=== PATIENT | male | born 1985 | race African-American/Black ===

== ENCOUNTER 2023-10-06 12:25 | Observation (INO) ==
[2023-10-06 13:13] LABS: Basophils # (auto) 0.03 K/uL (0.00-0.20); Eosinophils # (auto) 0.07 K/uL (0.00-0.50); Eosinophils % (auto) 2.2 %; Hematocrit (blood only) 45.2 % (42.0-52.0); Hemoglobin 15.8 g/dl (14.0-18.0); Immature Granulocytes # (auto) 0.01 K/uL (0.01-0.20); Immature Granulocytes % (auto) 0.3 %; Lymphocytes # (auto) 0.76 K/uL (1.20-3.40); Lymphocytes % (auto) 24.3 %; Mean Corpuscular Volume 85.9 fL (80.0-100.0); Mean Platelet Volume 10.3 fL (9.4-12.4); Monocytes # (auto) 0.24 K/uL (0.11-0.59); Monocytes % (auto) 7.7 %; Neutrophils # (auto) 2.02 K/uL (1.40-6.50); Neutrophils % (auto) 64.5 %; Platelet Count 289 K/uL (130-400); RDW Standard Deviation 37.6 fL (36.4-46.3); Red Blood Count 5.26 M/uL (4.70-6.10); White Blood Count 3.13 K/ul (4.8-10.8)
[2023-10-06 13:17] LABS: iSTAT Ionized Calcium 1.13 mmol/l (1.12-1.32); iSTAT Potassium 3.4 mmol/L (3.3-5.0)
[2023-10-06 13:24] LABS: Albumin Level 4.3 gm/dl (3.4-5.0); Bilirubin,Total 1.3 mg/dl (0.2-1.0); Calcium 9.2 mg/dl (8.6-10.3); Magnesium 1.6 mg/dl (1.7-2.4); Potassium 3.4 mmol/L (3.5-5.1)
[2023-10-06 13:30] LABS: Albumin Globulin Ratio 1.4 (0.9-2); BUN Creatinine Ratio 9.6 (10-20); Creatinine Clr Calc Pharmacy 119.4 ml/min; Est GFR (African American) 105.8 ml/min; Est GFR (Non-African American) 91.3 ml/min; Total Protein 7.3 gm/dl (6.0-8.3)
[2023-10-06 13:35] LABS: Acetaminophen < 3 ug/ml (10-30); Salicylate < 3.0 mg/dl (3.0-30)
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
[2023-10-06 14:01] LABS: Troponin I High Sensitivity 7.4 pg/ml (0-20)
[2023-10-06 14:05] LABS: Appearance Urine Clear (Clear); Bacteria Urine Automated None Seen (None Seen); Bilirubin Urine Negative (Negative); Blood Urine Negative (Negative); Color Urine Dark Yellow; Epithelial Cell Urine Auto 0-2 /hpf (0-2); Glucose Urine UA Negative (Negative); Granular Casts Urine Present /lpf (None Prsent); Hyaline Casts Urine Present /lpf (None Presnt); Ketones Urine 4+ (Negative); Leukocyte Esterase Urine Negative (Negative); Nitrite Urine Negative (Negative); Protein Urine 1+ (Negative); RBC Urine Automated 0-2 /hpf (0-2); Urobilinogen Urine Negative (Negative); WBC Urine Automated 0-5 /hpf (0-5)
[2023-10-06 14:28] LABS: Base Excess VBG -5.1 mEq/L; HCO3 VBG 20 mmol/L; Oxygen Saturation VBG 85.4 %; PCO2 VBG 36 mmHg (38-50); PO2 VBG 55 mmHg; pH VBG 7.35 (7.36-7.41)
[2023-10-06 14:35] LABS: Amphetamines+Metham, Urine Neg (Neg); Barbiturates, Urine Neg (Neg); Benzodiazepine, Urine Neg (Neg); Cocaine, Urine Neg (Neg); Fentanyl, Urine Neg (Neg); MDMA (Ecstacy), Urine Neg (Neg); Marijuana, Urine Neg (Neg); Methadone, Urine Neg (Neg); Opiate, Urine Neg (Neg); Phencyclidine, Urine Neg (Neg)
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
[2023-10-06] MEDS ORDERED: ACETAMINOPHEN 325 MG TAB PO PRN (15:28)
--- NOTE | 2023-10-06 15:31 | Billing Data ---
Date of Service October 06, 2023 Coding Level of Care Code 59856 INT INP/OBS CARE
[2023-10-06 15:54] LABS: Phosphorus 3.1 mg/dl (2.5-4.9)
[2023-10-06 16:56] LABS: BUN Creatinine Ratio 10.2 (10-20); Calcium 9.2 mg/dl (8.6-10.3); Creatinine Clr Calc Pharmacy 126.7 ml/min; Est GFR (African American) 113.7 ml/min; Est GFR (Non-African American) 98.1 ml/min; Magnesium 1.7 mg/dl (1.7-2.4); Phosphorus 3.6 mg/dl (2.5-4.9); Potassium 3.9 mmol/L (3.5-5.1)
[2023-10-06] MEDS: ONDANSETRON INJ 2 MG/ML 2 ML VIAL IV PRN (17:21)
[2023-10-06] MEDS ORDERED: DOCUSATE CALCIUM 240 MG CAPSULE PO PRN (17:24)
[2023-10-06] MEDS: POTASSIUM CHLORIDE CRTAB 20 MEQ TABCR PO STA (17:28)
[2023-10-06] MEDS: LACTATED RINGER'S 1,000 ML IV ONE (17:28)
[2023-10-06] MEDS: DOCUSATE SODIUM 100 MG CAP PO ONE (17:28)
[2023-10-06] MEDS: MAGNESIUM SULFATE / D5W 1 GM/100 ML BAG IV SCH (17:32)
[2023-10-06] MEDS: THIAMINE HCL 100 MG in SYRINGE 9 ML IV STA (18:23)
[2023-10-06] MEDS: FOLIC ACID 1 MG in SYRINGE 9.8 ML IV STA (18:27)
[2023-10-06] MEDS: LACTATED RINGER'S 1,000 ML IV SCH (18:38)
[2023-10-06 20:19] LABS: BUN Creatinine Ratio 11.5 (10-20); Calcium 8.5 mg/dl (8.6-10.3); Creatinine Clr Calc Pharmacy 142.7 ml/min; Est GFR (African American) 127.8 ml/min; Est GFR (Non-African American) 110.3 ml/min; Magnesium 1.9 mg/dl (1.7-2.4); Phosphorus 2.9 mg/dl (2.5-4.9); Potassium 3.6 mmol/L (3.5-5.1)
[2023-10-07 00:21] LABS: Magnesium 1.9 mg/dl (1.7-2.4); Phosphorus 2.5 mg/dl (2.5-4.9)
[2023-10-07 00:30] LABS: BUN Creatinine Ratio 9.6 (10-20); Calcium 8.5 mg/dl (8.6-10.3); Creatinine Clr Calc Pharmacy 132.1 ml/min; Est GFR (African American) 119.6 ml/min; Est GFR (Non-African American) 103.2 ml/min; Potassium 3.7 mmol/L (3.5-5.1)
[2023-10-07 04:54] LABS: BUN Creatinine Ratio 10.1 (10-20); Calcium 8.3 mg/dl (8.6-10.3); Creatinine Clr Calc Pharmacy 139.5 ml/min; Est GFR (African American) 126.6 ml/min; Est GFR (Non-African American) 109.2 ml/min; Magnesium 1.8 mg/dl (1.7-2.4); Phosphorus 2.3 mg/dl (2.5-4.9); Potassium 3.7 mmol/L (3.5-5.1)
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
[2023-10-07 08:26] LABS: BUN Creatinine Ratio 10.1 (10-20); Creatinine Clr Calc Pharmacy 139.5 ml/min; Est GFR (African American) 126.6 ml/min; Est GFR (Non-African American) 109.2 ml/min; Magnesium 1.7 mg/dl (1.7-2.4); Phosphorus 2.3 mg/dl (2.5-4.9); Potassium 3.8 mmol/L (3.5-5.1)
[2023-10-07] MEDS: DOCUSATE CALCIUM 240 MG CAPSULE PO SCH (08:52)
[2023-10-07] MEDS: THIAMINE HCL 100 MG TAB PO SCH (08:53)
[2023-10-07] MEDS: MAGNESIUM OXIDE 400 MG TAB PO SCH (08:53)
[2023-10-07] MEDS: PANTOprazole 40 MG TAB PO SCH (08:53)
[2023-10-07] MEDS: FOLIC ACID 1 MG TAB PO SCH (08:53)
[2023-10-07 12:08] LABS: BUN Creatinine Ratio 8.3 (10-20); Calcium 8.2 mg/dl (8.6-10.3); Creatinine Clr Calc Pharmacy 147.8 ml/min; Est GFR (African American) 129.6 ml/min; Est GFR (Non-African American) 111.9 ml/min; Magnesium 1.6 mg/dl (1.7-2.4); Phosphorus 1.9 mg/dl (2.5-4.9)
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
--- NOTE | 2023-10-07 12:13 | Billing Data ---
Date of Service October 07, 2023 Coding Level of Care Code 03723 IN/OBS DISCH 30 MIN/LESS
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
--- NOTE | 2023-10-07 21:55 | Electrocardiogram Report ---
Test Reason : Blood Pressure : */* mmHG Vent. Rate : 62 BPM Atrial Rate : 62 BPM P-R Int : 156 ms QRS Dur : 94 ms QT Int : 432 ms P-R-T Axes : -10 -2 -17 degrees QTcB Int : 438 ms Sinus rhythm with marked sinus arrhythmia Cannot rule out Inferior infarct , age undetermined Abnormal ECG No previous ECGs available Confirmed by Gasper Wilkes ([id number]) on 10/07/2023 9:55:05 PM Referred By: [facility] Confirmed By: Gasper Wilkes
--- NOTE | 2023-10-07 21:55 | Electrocardiogram Report ---
Test Reason : Blood Pressure : */* mmHG Vent. Rate : 85 BPM Atrial Rate : 85 BPM P-R Int : 140 ms QRS Dur : 88 ms QT Int : 380 ms P-R-T Axes : 161 4 137 degrees QTcB Int : 452 ms Unusual P axis, possible ectopic atrial rhythm Low voltage QRS Nonspecific T wave abnormality Abnormal ECG When compared with ECG of 06-Oct-2023 12:32, Ectopic atrial rhythm has replaced Sinus rhythm Nonspecific T wave abnormality now evident in Lateral leads Confirmed by Gasper Wilkes ([id number]) on 10/07/2023 9:55:26 PM Referred By: [facility] Confirmed By: Gasper Wilkes
--- NOTE | 2023-10-07 21:57 | Electrocardiogram Report ---
Test Reason : Blood Pressure : */* mmHG Vent. Rate : 78 BPM Atrial Rate : 78 BPM P-R Int : 150 ms QRS Dur : 88 ms QT Int : 400 ms P-R-T Axes : 55 10 46 degrees QTcB Int : 456 ms Normal sinus rhythm Nonspecific T wave abnormality When compared with ECG of 06-Oct-2023 17:17, Sinus rhythm has replaced Ectopic atrial rhythm Nonspecific T wave abnormality, improved in Inferior leads Confirmed by Gasper Wilkes ([id number]) on 10/07/2023 9:57:28 PM Referred By: [facility] Confirmed By: Gasper Wilkes
--- NOTE | 2023-10-07 21:58 | Electrocardiogram Report ---
Test Reason : Blood Pressure : */* mmHG Vent. Rate : 71 BPM Atrial Rate : 71 BPM P-R Int : 160 ms QRS Dur : 82 ms QT Int : 418 ms P-R-T Axes : 56 -4 5 degrees QTcB Int : 454 ms Normal sinus rhythm with sinus arrhythmia Poor R wave progression, consider anterior OK vs. lead placement vs. LVH Abnormal ECG When compared with ECG of 06-Oct-2023 22:47, No significant change was found Confirmed by Gasper Wilkes ([id number]) on 10/07/2023 9:58:06 PM Referred By: [facility] Confirmed By: Gasper Wilkes
== END 2023-10-07 15:29 ==
LOC: EDINP 12:25 → ED 12:25 → SUATTDRO 15:29 → EDINP 17:24